=== PATIENT | female | born 1930 | race Caucasian/White ===

== ENCOUNTER 2017-09-02 23:15 | Emergency (ER) | payer OTHER, MEDICARE ==
--- NOTE | 2017-09-02 23:18 | PDOC ---
History of Present Illness - General Chief Complaint: Injury Stated Complaint: S/P FALL Time Seen by Provider: 09/02/17 23:18 Past History - Past Medical History Allergies/Adverse Reactions: Allergies Allergy/AdvReac Type Severity Reaction Status Date / Time codeine [Codeine] Allergy Verified 09/09/14 13:40 morphine Allergy Verified 09/09/14 13:40 Home Medications: Ambulatory Orders Aspirin 81 mg PO DAILY tablet 01/04/13 Ascorbate Calcium [Vitamin C] 500 mg PO BID 09/09/14 Cyanocobalamin (Vitamin B-12) [Vitamin B-12] 1,000 mcg PO DAILY 09/09/14 Cholecalciferol (Vitamin D3) [Vitamin D3] 2,000 unit PO DAILY capsule 06/02/17 HTN: Yes Hypercholesterolemia: Yes - Suicide/Smoking/Psychosocial Hx Smoking Status: No Smoking History: Never smoked Number of Cigarettes Smoked Daily: 0 Hx Alcohol Use: Yes ("wine with dinner") ED Treatment Course - LABORATORY CBC & Chemistry Diagram: 09/03/17 00:30 09/03/17 00:30 Medical Decision Making - Medical Decision Making 09/03/17 02:08 CT CHEST/ABD/PELVIS show no acute injury. 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 Labs Unremarkable. WIll DC Home to follow up with her PMD. *DC/Admit/Observation/Transfer Diagnosis at time of Disposition: Multiple contusions Fall Qualifiers: Encounter type: initial encounter Qualified Code(s): W19.XXXA - Unspecified fall, initial encounter - Discharge Dispostion Disposition: HOME Condition at time of disposition: Fair Admit: No - Referrals Referrals: Moises Ricardo MD [Primary Care Provider] - - Patient Instructions Printed Discharge Instructions: DI for Contusion Additional Instructions: Mrs Estrada- I am sorry this hurts so badly. Try tylenol for the pain. Follow up with Dr. Ricardo. Return to us if worse or problems Best- Dr. Reji Mays - Post Discharge Activity
[2017-09-02] MEDS ORDERED: ACETAMINOPHEN 1000 MG/100 ML VIAL (NON FORMULARY) IVPB ONE (23:24)
[2017-09-02 23:38] VITALS: BP 133/77; PULSE 88; TEMP 98.3; BMI 17.6
[2017-09-03] MEDS ORDERED: ACETAMINOPHEN INJECTION 100 ML IVPB ONE (00:59)
[2017-09-03 01:42] LABS: INR 0.96 (0.82-1.09); PROTHROMBIN TIME (PATIENT) 10.8 SEC (9.98-11.88)
[2017-09-03 01:51] LABS: ALBUMIN 3.8 g/dl (3.4-5.0); ANION GAP 10 (8-16); CALCIUM 9.2 mg/dL (8.5-10.1); CO2 28 mmol/L (21-32); CREATININE 0.7 mg/dL (0.55-1.02); GLUCOSE,RANDOM 105 mg/dL (74-106); SGOT/AST 42 U/L (15-37); SGPT/ALT 28 U/L (12-78)
[2017-09-03 01:52] LABS: ALK PHOS 101 U/L (45-117)
[2017-09-03 01:52] LABS: URINE APPEARANCE CLOUDY; URINE BILIRUBIN NEGATIVE (NEGATIVE); URINE BLOOD 1+ (NEGATIVE); URINE COLOR YELLOW; URINE GLUCOSE (UA) NEGATIVE (NEGATIVE); URINE KETONE TRACE (NEGATIVE); URINE NITRITE NEGATIVE (NEGATIVE); URINE PROTEIN NEGATIVE (NEGATIVE); URINE UROBILINOGEN NEGATIVE mg/dL (0.2-1.0)
[2017-09-03 02:02] LABS: MCH 31.3 pg (25.7-33.7); MCHC 34.3 g/dl (32.0-36.0); MEAN CELL VOLUME 91.2 fl (80-96); PLATELET COUNT 227 K/MM3 (134-434); RDW 14.3 % (11.6-15.6); WHITE BLOOD COUNT 7.4 K/mm3 (4.0-10.8)
[2017-09-03 02:03] LABS: BASOPHIL 0.3 % (0-2.0); EOSINOPHIL 0.6 % (0-4.5); MEAN PLT VOLUME 7.1 fl (7.5-11.1)
[2017-09-03 02:17] LABS: URINE BACTERIA FEW /hpf (NONE SEEN); URINE MUCUS RARE; URINE RBC 17 /hpf (0-3); URINE WBC 9 /hpf (3-5)
[2017-09-03 12:33] LABS: URINE LEUK ESTERASE Negative (NEGATIVE)
== END 2017-09-03 02:34 | disposition home or self-care (01) ==
LOC: FER 23:15
DX: T14.8XXA Other injury of unspecified body region, initial encounter (principal); W18.39XA Other fall on same level, initial encounter; Y93.89 Activity, other specified; Y92.9 Unspecified place or not applicable; I10 Essential (primary) hypertension
CPT/HCPCS: 36415; 71250-TC; 72125-TC; 72131-TC; 74176-TC; 80053; 81003; 81015; 83690; 85025; 85610; 87086; 99284-25

== ENCOUNTER 2022-04-19 18:37 | Inpatient (IN) | payer OTHER, MEDICARE ==
[2022-04-19] MEDS ORDERED: BEBTELOVIMAB (EUA) 175 MG/2 ML VIAL IVPUSH ONE (20:57)
[2022-04-19 20:59] LABS: BASO % 0.9 % (0-2.0); HEMATOCRIT 42.4 % (32.4-45.2); LYMPH % 16.3 % (8-40); MCH 28.2 pg (25.7-33.7); MCHC 33.1 g/dl (32.0-36.0); MEAN CELL VOLUME 85.3 fl (80-96); MEAN PLT VOLUME 7.4 fl (7.5-11.1); MONO % 8.1 % (3.8-10.2); NEUT % 74.7 % (42.8-82.8); PLATELET COUNT 184 10^3/uL (134-434); RBC 4.97 M/mm3 (3.60-5.2); RDW 15.5 % (11.6-15.6); WHITE BLOOD COUNT 7.8 K/mm3 (4.0-10.0)
[2022-04-19 21:22] LABS: ALBUMIN 3.5 g/dl (3.4-5.0); CALCIUM 8.5 mg/dL (8.5-10.1)
[2022-04-19 21:23] LABS: BLOOD UREA NITROGEN 19.8 mg/dL (7-18)
[2022-04-19 21:25] LABS: CREATININE 0.9 mg/dL (0.55-1.3)
[2022-04-19 21:27] LABS: BILIRUBIN,TOTAL 0.5 mg/dL (0.2-1); TOT PROT 6.9 g/dl (6.4-8.2)
[2022-04-19] MEDS ORDERED: ACETAMINOPHEN 1000 MG/100 ML BAG IVPB ONE (21:47)
[2022-04-20] MEDS ORDERED: LORazepam 2 MG/ML SDV VIAL IVPUSH STA
[2022-04-20 02:46] LABS: EPI CELLS 3 /uL (0-25.1); HYALINE CASTS 0 /uL (0-3.1); URINE APPEARANCE CLOUDY; URINE BACTERIA >9,000 /uL (0-1359); URINE BILIRUBIN NEGATIVE (NEGATIVE); URINE COLOR YELLOW; URINE GLUCOSE (UA) NEGATIVE (NEGATIVE); URINE KETONE TRACE (NEGATIVE); URINE LEUK ESTERASE NEGATIVE (NEGATIVE); URINE NITRITE POSITIVE (NEGATIVE); URINE PROTEIN TRACE (NEGATIVE); URINE RBC 49 /uL (0-23.9); URINE UROBILINOGEN 0.2 mg/dL (0.2-1.0); URINE WBC 1 /uL (0-25.8)
[2022-04-20 09:01] LABS: BASO % 0.3 % (0-2.0); HEMATOCRIT 41.4 % (32.4-45.2); LYMPH % 19.9 % (8-40); MCH 28.4 pg (25.7-33.7); MCHC 33.8 g/dl (32.0-36.0); MEAN CELL VOLUME 83.9 fl (80-96); MONO % 9.6 % (3.8-10.2); NEUT % 70.2 % (42.8-82.8); PLATELET COUNT 161 10^3/uL (134-434); RBC 4.94 M/mm3 (3.60-5.2); RDW 15.4 % (11.6-15.6); WHITE BLOOD COUNT 8.4 K/mm3 (4.0-10.0)
[2022-04-20 09:18] LABS: ALBUMIN 3.4 g/dl (3.4-5.0); BLOOD UREA NITROGEN 14.6 mg/dL (7-18)
[2022-04-20 09:21] LABS: CREATININE 0.7 mg/dL (0.55-1.3); PHOSPHOROUS 2.7 mg/dL (2.5-4.9)
[2022-04-20 09:22] LABS: TOT PROT 6.3 g/dl (6.4-8.2)
[2022-04-20 09:23] LABS: BILIRUBIN,TOTAL 0.5 mg/dL (0.2-1)
[2022-04-20] MEDS: ENOXAPARIN NA (PORCINE) 40 MG/0.4 ML DISP.SYRIN SQ SCH (09:57)
[2022-04-20] MEDS ORDERED: ACETAMINOPHEN 1000 MG/100 ML BAG IVPB ONE (12:07)
[2022-04-20] MEDS ORDERED: cefTRIAXone SODIUM 1 GM VIAL ONE (13:45)
[2022-04-20] MEDS ORDERED: DEXTROSE 5%-WATER - 50 ML IVPB ONE (13:45)
[2022-04-20] MEDS: DEXAMETHASONE SOD PHOSPHATE 10 MG/1 ML VIAL IVPUSH SCH (13:51)
[2022-04-20] MEDS: CEFTRIAXONE 1 GM in DEXTROSE 5%-WATER - 50 ML IVPB SCH (13:51)
[2022-04-20] MEDS: amLODIPine BESYLATE 2.5 MG TABLET (FP) PO SCH (13:51)
[2022-04-20] MEDS: ASPIRIN 81 MG CHEWABLE TABLETS PO SCH (13:51)
[2022-04-20] MEDS: metoPROLOL SUCCINATE 25 MG TAB.SR.24H (FP) PO SCH (13:52)
[2022-04-20 14:27] VITALS: BMI 18.3
[2022-04-20] MEDS ORDERED: REMDESIVIR 200 MG in SODIUM CHLORIDE 250 ML IVPB ONE (15:42)
[2022-04-20] MEDS ORDERED: ACETAMINOPHEN 1000 MG/100 ML BAG IVPB PRN (18:00)
[2022-04-20] MEDS: ATORVASTATIN CA 10 MG TABLET (FP) PO SCH (23:16)
[2022-04-20] MEDS: QUEtiapine FUMARATE 25 MG TABLET PO SCH (23:16)
[2022-04-21] MEDS ORDERED: LORazepam 0.5 MG TABLET PO ONE (01:55)
[2022-04-21 10:26] LABS: HEMATOCRIT 40.3 % (32.4-45.2); HEMOGLOBIN 13.5 GM/dL (10.7-15.3); LYMPH % 12.4 % (8-40); MCH 28.2 pg (25.7-33.7); MCHC 33.5 g/dl (32.0-36.0); MEAN PLT VOLUME 7.8 fl (7.5-11.1); MONO % 5.4 % (3.8-10.2); NEUT % 82.2 % (42.8-82.8); PLATELET COUNT 176 10^3/uL (134-434); RDW 14.9 % (11.6-15.6); WHITE BLOOD COUNT 8.8 K/mm3 (4.0-10.0)
[2022-04-21] MEDS ORDERED: DEXTROSE 5%-WATER - 50 ML IVPB ONE (10:35)
[2022-04-21] MEDS ORDERED: cefTRIAXone SODIUM 1 GM VIAL ONE (10:35)
[2022-04-21] MEDS: ASPIRIN 81 MG CHEWABLE TABLETS PO SCH (10:46)
[2022-04-21] MEDS: amLODIPine BESYLATE 2.5 MG TABLET (FP) PO SCH (10:47)
[2022-04-21] MEDS: DEXAMETHASONE SOD PHOSPHATE 10 MG/1 ML VIAL IVPUSH SCH (10:47)
[2022-04-21] MEDS: ENOXAPARIN NA (PORCINE) 40 MG/0.4 ML DISP.SYRIN SQ SCH (10:47)
[2022-04-21] MEDS: metoPROLOL SUCCINATE 25 MG TAB.SR.24H (FP) PO SCH (10:48)
[2022-04-21] MEDS: CEFTRIAXONE 1 GM in DEXTROSE 5%-WATER - 50 ML IVPB SCH (10:48)
[2022-04-21 10:49] LABS: ALBUMIN 2.8 g/dl (3.4-5.0); BLOOD UREA NITROGEN 35.3 mg/dL (7-18); CALCIUM 7.8 mg/dL (8.5-10.1); MAGNESIUM 2.5 mg/dL (1.8-2.4)
[2022-04-21 10:50] LABS: PHOSPHOROUS 3.7 mg/dL (2.5-4.9)
[2022-04-21 10:52] LABS: BILIRUBIN,TOTAL 0.5 mg/dL (0.2-1); CREATININE 0.9 mg/dL (0.55-1.3); TOT PROT 5.8 g/dl (6.4-8.2)
[2022-04-21] MEDS: QUEtiapine FUMARATE 25 MG TABLET PO SCH ×2 (11:00→23:41)
[2022-04-21 12:31] LABS: ERYTHROCYTE SEDIMENTATION RATE 10 mm/hr (0-30)
[2022-04-21] MEDS: REMDESIVIR 100 MG in SODIUM CHLORIDE 250 ML IVPB SCH (17:22)
[2022-04-21] MEDS: ATORVASTATIN CA 10 MG TABLET (FP) PO SCH (23:41)
[2022-04-22] MEDS ORDERED: DEXTROSE 5%-WATER - 50 ML IVPB ONE (10:19)
[2022-04-22] MEDS ORDERED: cefTRIAXone SODIUM 1 GM VIAL ONE (10:19)
[2022-04-22] MEDS ORDERED: QUEtiapine FUMARATE 25 MG TABLET PO ONE (10:35)
[2022-04-22 10:55] LABS: HEMATOCRIT 39.2 % (32.4-45.2); HEMOGLOBIN 13.3 GM/dL (10.7-15.3); MCH 28.1 pg (25.7-33.7); MCHC 33.9 g/dl (32.0-36.0); MEAN CELL VOLUME 82.9 fl (80-96); MEAN PLT VOLUME 7.2 fl (7.5-11.1); PLATELET COUNT 197 10^3/uL (134-434); RBC 4.73 M/mm3 (3.60-5.2); RDW 15.4 % (11.6-15.6)
[2022-04-22 11:25] LABS: CALCIUM 7.8 mg/dL (8.5-10.1)
[2022-04-22 11:26] LABS: BLOOD UREA NITROGEN 43.9 mg/dL (7-18)
[2022-04-22 11:29] LABS: CREATININE 0.7 mg/dL (0.55-1.3)
[2022-04-22] MEDS: ASPIRIN 81 MG CHEWABLE TABLETS PO SCH (11:29)
[2022-04-22] MEDS: DEXAMETHASONE SOD PHOSPHATE 10 MG/1 ML VIAL IVPUSH SCH (11:29)
[2022-04-22] MEDS: ENOXAPARIN NA (PORCINE) 40 MG/0.4 ML DISP.SYRIN SQ SCH (11:30)
[2022-04-22 11:31] LABS: BILIRUBIN,TOTAL 0.6 mg/dL (0.2-1); TOT PROT 5.8 g/dl (6.4-8.2)
[2022-04-22] MEDS: amLODIPine BESYLATE 2.5 MG TABLET (FP) PO SCH (11:31)
[2022-04-22] MEDS: CEFTRIAXONE 1 GM in DEXTROSE 5%-WATER - 50 ML IVPB SCH (11:31)
[2022-04-22] MEDS: metoPROLOL SUCCINATE 25 MG TAB.SR.24H (FP) PO SCH (11:32)
[2022-04-22] MEDS: QUEtiapine FUMARATE 25 MG TABLET PO SCH (11:46)
[2022-04-22] MEDS: KCL 10 MEQ IVPB 10 MEQ/100 ML INFUS.BAG IVPB SCH ×3 (16:05→20:30)
[2022-04-22] MEDS: REMDESIVIR 100 MG in SODIUM CHLORIDE 250 ML IVPB SCH (17:14)
[2022-04-23] MEDS: QUEtiapine FUMARATE 25 MG TABLET PO SCH ×3 (00:23→21:54)
[2022-04-23] MEDS: ATORVASTATIN CA 10 MG TABLET (FP) PO SCH ×2 (00:24→21:54)
[2022-04-23] MEDS ORDERED: cefTRIAXone SODIUM 1 GM VIAL ONE (09:25)
[2022-04-23] MEDS ORDERED: DEXTROSE 5%-WATER - 50 ML IVPB ONE (09:25)
[2022-04-23] MEDS: CEFTRIAXONE 1 GM in DEXTROSE 5%-WATER - 50 ML IVPB SCH (09:42)
[2022-04-23] MEDS: DEXAMETHASONE SOD PHOSPHATE 10 MG/1 ML VIAL IVPUSH SCH ×2 (09:43→18:30)
[2022-04-23] MEDS: ENOXAPARIN NA (PORCINE) 40 MG/0.4 ML DISP.SYRIN SQ SCH (09:43)
[2022-04-23] MEDS: metoPROLOL SUCCINATE 25 MG TAB.SR.24H (FP) PO SCH (09:58)
[2022-04-23] MEDS: ASPIRIN 81 MG CHEWABLE TABLETS PO SCH (09:58)
[2022-04-23] MEDS: amLODIPine BESYLATE 2.5 MG TABLET (FP) PO SCH (09:58)
[2022-04-23] MEDS: KCL 10 MEQ IVPB 10 MEQ/100 ML INFUS.BAG IVPB SCH ×3 (11:20→13:12)
[2022-04-23] MEDS ORDERED: REMDESIVIR 100 MG in SODIUM CHLORIDE 270 ML IVPB ONE (17:20)
[2022-04-24] MEDS: QUEtiapine FUMARATE 25 MG TABLET PO SCH ×4 (06:17→22:13)
[2022-04-24] MEDS: ASPIRIN 81 MG CHEWABLE TABLETS PO SCH ×2 (09:52→10:00)
[2022-04-24] MEDS: ENOXAPARIN NA (PORCINE) 40 MG/0.4 ML DISP.SYRIN SQ SCH (09:52)
[2022-04-24] MEDS: amLODIPine BESYLATE 2.5 MG TABLET (FP) PO SCH ×2 (09:52→10:01)
[2022-04-24] MEDS: metoPROLOL SUCCINATE 25 MG TAB.SR.24H (FP) PO SCH ×2 (09:52→10:01)
[2022-04-24] MEDS: DEXAMETHASONE SOD PHOSPHATE 10 MG/1 ML VIAL IVPUSH SCH (09:52)
[2022-04-24 15:09] LABS: HEMATOCRIT 42.5 % (32.4-45.2); HEMOGLOBIN 14.3 GM/dL (10.7-15.3); MCHC 33.6 g/dl (32.0-36.0); MEAN CELL VOLUME 83.5 fl (80-96); MEAN PLT VOLUME 7.2 fl (7.5-11.1); PLATELET COUNT 286 10^3/uL (134-434); RBC 5.09 M/mm3 (3.60-5.2); RDW 15.4 % (11.6-15.6); WHITE BLOOD COUNT 9.9 K/mm3 (4.0-10.0)
[2022-04-24 15:31] LABS: CALCIUM 8.1 mg/dL (8.5-10.1)
[2022-04-24 15:32] LABS: ALBUMIN 3.3 g/dl (3.4-5.0); BLOOD UREA NITROGEN 33.5 mg/dL (7-18); MAGNESIUM 2.7 mg/dL (1.8-2.4)
[2022-04-24 15:35] LABS: CREATININE 0.8 mg/dL (0.55-1.3); PHOSPHOROUS 2.5 mg/dL (2.5-4.9)
[2022-04-24 15:36] LABS: TOT PROT 6.2 g/dl (6.4-8.2)
[2022-04-24] MEDS ORDERED: hydrOXYzine HCL 50 MG/ML VIAL IM PRN (16:24)
[2022-04-24] MEDS: ATORVASTATIN CA 10 MG TABLET (FP) PO SCH (22:13)
[2022-04-25] MEDS: QUEtiapine FUMARATE 25 MG TABLET PO SCH ×3 (06:33→21:16)
[2022-04-25] MEDS: ASPIRIN 81 MG CHEWABLE TABLETS PO SCH (10:22)
[2022-04-25] MEDS: amLODIPine BESYLATE 2.5 MG TABLET (FP) PO SCH (10:22)
[2022-04-25] MEDS: metoPROLOL SUCCINATE 25 MG TAB.SR.24H (FP) PO SCH (10:22)
[2022-04-25] MEDS: ENOXAPARIN NA (PORCINE) 40 MG/0.4 ML DISP.SYRIN SQ SCH (10:22)
[2022-04-25] MEDS: hydrOXYzine HCL 50 MG/ML VIAL IM SCH ×3 (12:26→22:48)
[2022-04-25 13:53] LABS: HEMATOCRIT 42.5 % (32.4-45.2); HEMOGLOBIN 14.4 GM/dL (10.7-15.3); MCH 28.3 pg (25.7-33.7); MCHC 33.8 g/dl (32.0-36.0); MEAN CELL VOLUME 83.7 fl (80-96); MEAN PLT VOLUME 6.7 fl (7.5-11.1); PLATELET COUNT 229 10^3/uL (134-434); RBC 5.08 M/mm3 (3.60-5.2); RDW 15.1 % (11.6-15.6); WHITE BLOOD COUNT 8.4 K/mm3 (4.0-10.0)
[2022-04-25] MEDS: ACETAMINOPHEN 500 MG TABLET (FP) PO PRN (15:32)
[2022-04-25] MEDS: ATORVASTATIN CA 10 MG TABLET (FP) PO SCH (21:16)
[2022-04-26] MEDS: hydrOXYzine HCL 50 MG/ML VIAL IM SCH ×2 (06:07→12:09)
[2022-04-26] MEDS: QUEtiapine FUMARATE 25 MG TABLET PO SCH (06:08)
[2022-04-26 06:59] VITALS: RESP 20
[2022-04-26] MEDS ORDERED: amLODIPine BESYLATE 5 MG TABLET (FP) PO SCH ×2 (10:02→10:30)
[2022-04-26] MEDS: ASPIRIN 81 MG CHEWABLE TABLETS PO SCH (10:14)
[2022-04-26] MEDS: ACETAMINOPHEN 500 MG TABLET (FP) PO PRN (10:14)
[2022-04-26] MEDS: ENOXAPARIN NA (PORCINE) 40 MG/0.4 ML DISP.SYRIN SQ SCH (10:15)
[2022-04-26] MEDS: metoPROLOL SUCCINATE 25 MG TAB.SR.24H (FP) PO SCH (10:15)
[2022-04-26] MEDS: amLODIPine BESYLATE 2.5 MG TABLET (FP) PO SCH (10:17)
[2022-04-26 12:07] VITALS: BP 105/65; PULSE 100; TEMP 98
== END 2022-04-26 13:16 | DRG 177 ==
LOC: JER 18:37 → JERBED 21:46 → J8W 04-20 04:19
PROVIDERS: ADMIT Hospitalist; ATTEND Internal Medicine
PROC: XW033E5 Introduction of Remdesivir Anti-infective into Peripheral Vein, Percutaneous Approach, New Technology Group 5 (ICD-10-PCS; principal; 2022-04-19)
DX: U07.1 COVID-19 (principal); G93.41 Metabolic encephalopathy; F03.91 Unspecified dementia, unspecified severity, with behavioral disturbance; Z68.1 Body mass index [BMI] 19.9 or less, adult; I10 Essential (primary) hypertension; E78.5 Hyperlipidemia, unspecified; R63.0 Anorexia; E87.6 Hypokalemia; E86.0 Dehydration; R62.7 Adult failure to thrive
CPT/HCPCS: 0241U-QW; 36415; 71045-TC-FY; 80053; 81003; 82728; 83615; 83735; 84100; 84132; 85025; 85027; 85379; 85651; 86140; 87040; 87070; 87086; 87205; 93005; 93010; 97116-GP; 97161-GP; 99285-25; C9399; J1100; Q0222

== ENCOUNTER 2022-04-26 13:58 | Emergency (ER) | payer OTHER, MEDICARE ==
[2022-04-26 14:04] VITALS: BMI 18.3
[2022-04-26 14:28] VITALS: TEMP 98
[2022-04-26 15:47] VITALS: BP 130/78; PULSE 76; RESP 18
== END 2022-04-26 17:35 ==
LOC: JER 13:58
DX: R45.1 Restlessness and agitation (principal)
CPT/HCPCS: 99283-25; 99285-25